=== PATIENT | female | born 1970 | race Caucasian/White ===

== ENCOUNTER 2019-07-07 21:10 | Emergency (ER) | payer BC ==
[2019-07-07] MEDS ORDERED: Metoclopramide 10 MG/2 ML SDV IVPUSH ONE (21:37)
[2019-07-07] MEDS ORDERED: Sodium Chloride 0.9% 10 ML Syringe FLUSH PRN (21:37)
[2019-07-07] MEDS ORDERED: Ketorolac 30 MG/ML SDV IVPUSH ONE (21:37)
[2019-07-07] MEDS ORDERED: diphenhydrAMINE 50 MG/ML SDV IVPUSH ONE (21:38)
--- NOTE | 2019-07-07 21:57 | EDM.PDOC ---
ED HPI GENERAL MEDICAL PROBLEM - General Chief Complaint: Headache Stated Complaint: HEADACHE Time Seen by Provider: 07/07/19 21:32 Source of Information: Reports: Patient History Limitations: Reports: No Limitations - History of Present Illness INITIAL COMMENTS - FREE TEXT/NARRATIVE: The patient presents with a severe right sided headache. This started this morning and it has gotten more intense through the day. She has photophobia, nausea and vomiting. She has no numbness or weakness. She is not dizzy. She has a history of migraines but never this bad. She had a headache after lunch yesterday but it went away. She has no fever, chills, cough, blurred vision or double vision. She has no chest pain, shortness of breath, abdominal pain, nausea or vomiting. Onset: Gradual Duration: Hour(s): Location: Reports: Head Quality: Reports: Sharp Severity: Severe Improves with: Reports: None Worsens with: Reports: None Associated Symptoms: Reports: Headaches, Nausea/Vomiting. 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 Right Headache Pain Score (Numeric/FACES): 9 - Related Data Allergies Allergy/AdvReac Type Severity Reaction Status Date / Time Sulfa (Sulfonamide Allergy Other Verified 07/07/19 21:32 Antibiotics) Home Meds: Home Meds Diazepam [Valium] 10 mg PO BEDTIME PRN 07/07/19 [History] Zolpidem [Ambien] 10 mg PO BEDTIME PRN 07/07/19 [History] traMADol [Ultram] 50 mg PO QID 07/07/19 [History] Past Medical History - Past Health History Medical/Surgical History: Denies Medical/Surgical History Social & Family History - Tobacco Use Smoking Status *Q: Current Every Day Smoker Years of Tobacco use: 30 Packs/Tins Daily: 0.1 - Caffeine Use Caffeine Use: Reports: None - Recreational Drug Use Recreational Drug Use: No ED ROS GENERAL - Review of Systems Review Of Systems: See Below Constitutional: Reports: No Symptoms HEENT: Reports: No Symptoms Respiratory: Reports: No Symptoms Cardiovascular: Reports: No Symptoms Endocrine: Reports: No Symptoms GI/Abdominal: Reports: Nausea, Vomiting. Denies: Abdominal Pain : Reports: No Symptoms Musculoskeletal: Reports: No Symptoms Skin: Reports: No Symptoms Neurological: Reports: Headache. Denies: Dizziness, Numbness, Weakness - Physical Exam Exam: See Below Exam Limited By: No Limitations General Appearance: Alert, No Apparent Distress Ears: Normal External Exam Nose: Normal Inspection Head Exam: Atraumatic, Normocephalic Neck: Normal Inspection Respiratory/Chest: No Respiratory Distress, Lungs Clear, Normal Breath Sounds Cardiovascular: Regular Rate, Rhythm, No Edema, No Murmur GI/Abdominal: Soft, Non-Tender, No Organomegaly, No Mass Neuro Exam (Abbreviated): Alert, Oriented, No Motor/Sensory Deficits Course - Vital Signs Last Recorded V/S: Last Vital Signs Temp 97.1 F 07/07/19 21:27 Pulse 71 07/07/19 21:27 Resp 18 07/07/19 21:27 BP 147/95 H 07/07/19 21:27 Pulse Ox 97 07/07/19 21:27 - Orders/Labs/Meds Orders: Active Orders 24 hr Category Date Time Status Peripheral IV Care [RC] . DIRECTED Care 07/07/19 21:37 Active Head wo Cont [CT] Stat Exams 07/07/19 21:37 Taken Sodium Chloride 0.9% [Saline Flush] Med 07/07/19 21:37 Active 10 ml FLUSH ASDIRECTED PRN Peripheral IV Insertion Adult [OM.PC] Routine Oth 07/07/19 21:37 Ordered Medication Orders Sodium Chloride (Saline Flush) 10 ml FLUSH ASDIRECTED PRN PRN Reason: Keep Vein Open Last Admin: 07/07/19 21:50 Dose: 10 ml Meds: Medications Generic Name Dose Route Start Last Admin Trade Name Freq PRN Reason Stop Dose Admin Sodium Chloride 10 ml 07/07/19 21:37 07/07/19 21:50 Saline Flush FLUSH 10 ml ASDIRECTED PRN Administration Keep Vein Open Discontinued Medications Generic Name Dose Route Start Last Admin Trade Name Freq PRN Reason Stop Dose Admin Diphenhydramine HCl 50 mg 07/07/19 21:38 07/07/19 21:47 Benadryl IVPUSH 07/07/19 21:39 50 mg ONETIME ONE Administration Hydromorphone HCl 1 mg 07/07/19 23:04 07/07/19 23:11 Dilaudid IVPUSH 07/07/19 23:05 1 mg ONETIME ONE Administration Ketorolac Tromethamine 30 mg 07/07/19 21:37 07/07/19 21:48 Toradol IVPUSH 07/07/19 21:38 30 mg ONETIME ONE Administration Metoclopramide HCl 10 mg 07/07/19 21:37 07/07/19 21:46 Reglan IVPUSH 07/07/19 21:38 10 mg ONETIME ONE Administration - Re-Assessments/Exams Free Text/Narrative Re-Assessment/Exam: 07/07/19 21:56 I ordered an IV saline lock, reglan 10mg IV, toradol 30mg IV, benadryl 50mg IV and a CT of her head. 07/07/19 23:39 She is feeling better and would like to go home now. I will discharge her home. Departure - Departure Time of Disposition: 23:40 Disposition: Home, Self-Care 01 Condition: Good Clinical Impression: Headache Qualifiers: Headache type: unspecified Headache chronicity pattern: acute headache Intractability: not intractable Qualified Code(s): R51 - Headache - Discharge Information *PRESCRIPTION DRUG MONITORING PROGRAM REVIEWED*: No *COPY OF PRESCRIPTION DRUG MONITORING REPORT IN PATIENT MAULIK: No Referrals: PCP,Unknown [Primary Care Provider] - Forms: ED Department Discharge Additional Instructions: Go home and rest and you may take the 2 hydrocodone pills we are sending you home with. Please return if you are worse. - My Orders Last 24 Hours: My Active Orders 07/07/19 21:37 Peripheral IV Care [RC] . DIRECTED Head wo Cont [CT] Stat Sodium Chloride 0.9% [Saline Flush] 10 ml FLUSH ASDIRECTED PRN Peripheral IV Insertion Adult [OM.PC] Routine - Assessment/Plan Last 24 Hours: My Active Orders 07/07/19 21:37 Peripheral IV Care [RC] . DIRECTED Head wo Cont [CT] Stat Sodium Chloride 0.9% [Saline Flush] 10 ml FLUSH ASDIRECTED PRN Peripheral IV Insertion Adult [OM.PC] Routine
[2019-07-07] MEDS ORDERED: HYDROmorphone 1 MG/ML Syringe IVPUSH ONE (23:04)
[2019-07-07] MEDS ORDERED: Acetaminophen/HYDROcodone 325-5 MG Tab PO ONE (23:39)
--- NOTE | 2019-07-09 09:15 | CT ---
Head CT Technique: Multiple axial sections through the brain were obtained. Intravenous contrast was not utilized. Comparison: No prior intracranial imaging is available. Findings: Ventricles along with basal cisterns and sulci over the convexities appear within normal limits. No abnormal parenchymal densities are seen. No evidence of intracranial hemorrhage. No midline shift or mass effect is seen. Visualized paranasal sinuses show nothing acute. No acute calvarial abnormality is seen. Visualized mastoid sinuses are clear. Impression: 1. Nothing acute is appreciated on noncontrast head CT exam. Diagnostic code #1 This report was dictated in Mountain Standard Time I agree with preliminary report from [facility], finalized on 07/07/19, 11:35 PM Central Time
== END 2019-07-07 23:53 | disposition home or self-care (01) ==
LOC: JD.ED 21:10
DX: R51 Headache (principal); F17.210 Nicotine dependence, cigarettes, uncomplicated; Z88.2 Allergy status to sulfonamides
CPT/HCPCS: 70450; 96374; 96375; 99284; A9270; J1170; J1200; J1885; J2765; 99283

== ENCOUNTER 2020-01-28 12:55 | Emergency (ER) | payer BC ==
--- NOTE | 2020-01-28 13:25 | EDM.PDOC ---
ED HPI GENERAL MEDICAL PROBLEM - General Chief Complaint: Chest Pain Stated Complaint: CHEST PAIN Time Seen by Provider: 01/28/20 13:20 - History of Present Illness INITIAL COMMENTS - FREE TEXT/NARRATIVE: 49-year-old female presents the emergency room with chest pain. And pretty significant chest pain last night early this morning a couple different episodes where she describes it as almost a charley horse on the left side of her chest more anterior than posterior but it does radiate into her back. She was at rest when this started. The patient has had episodes like this when she was in [place] she was seen in the emergency room there and they described it as a charley horse in her chest. Patient has problems with insomnia she did not do well with Ambien and was started on trazodone about a week ago. Deep breathing causes a mild irritation to the left upper anterior chest. She has some discomfort in her anterior chest at this time but is otherwise doing well. 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, Neurological History: Reports: Migraines Psychiatric History: Reports: Other (See Below) Other Psychiatric History: insomnia Endocrine/Metabolic History: Reports: Other (See Below) Other Endocrine/Metabolic History: hyponatremia - Past Surgical History HEENT Surgical History: Reports: Adenoidectomy, Tonsillectomy Female Surgical History: Reports: Hysterectomy Social & Family History - Family History Family Medical History: Noncontributory - Tobacco Use Smoking Status *Q: Current Some Day Smoker Years of Tobacco use: 15 Packs/Tins Daily: 0.1 - Caffeine Use Caffeine Use: Reports: None ED ROS GENERAL - Review of Systems Review Of Systems: See Below Constitutional: Reports: No Symptoms HEENT: Reports: No Symptoms Respiratory: Reports: No Symptoms Cardiovascular: Reports: Chest Pain, Blood Pressure Problem (The patient has very low blood pressure her blood pressure at home has been either lower than normal but at times is been higher than normal). Denies: Dyspnea on Exertion, Lightheadedness, Palpitations Endocrine: Reports: No Symptoms GI/Abdominal: Reports: No Symptoms : Reports: No Symptoms Musculoskeletal: Reports: Other (See history of present illness) Skin: Reports: No Symptoms Neurological: Reports: No Symptoms ED EXAM, GENERAL - Physical Exam Exam: See Below Exam Limited By: No Limitations General Appearance: Alert, No Apparent Distress Eye Exam: Bilateral Eye: Normal Inspection Ears: Normal External Exam, Normal Canal, Hearing Grossly Normal, Normal TMs Nose: Normal Inspection, Normal Mucosa, No Blood Throat/Mouth: Normal Inspection, Normal Lips, Normal Teeth, Normal Gums, Normal Oropharynx, Normal Voice, No Airway Compromise Head: Atraumatic, Normocephalic Neck: Normal Inspection. No: Lymphadenopathy (L), Lymphadenopathy (R) Respiratory/Chest: No Respiratory Distress, Lungs Clear, Normal Breath Sounds, Other (With palpation of her chest she has discomfort in the anterior left chest that tenderness seems to be fairly superficial underneath the skin.) Cardiovascular: Regular Rate, Rhythm, No Edema, No Murmur GI/Abdominal: Normal Bowel Sounds, Soft, Non-Tender Back Exam: Normal Inspection. No: CVA Tenderness (L), CVA Tenderness (R) Extremities: Normal Inspection, No Pedal Edema Neurological: Alert, Oriented, Normal Cognition Course - Vital Signs Last Recorded V/S: Last Vital Signs Temp 36.6 C 01/28/20 13:01 Pulse 62 01/28/20 13:01 Resp 16 01/28/20 13:01 BP 150/72 H 01/28/20 13:01 Pulse Ox 100 01/28/20 13:01 - Orders/Labs/Meds Orders: Active Orders 24 hr Category Date Time Status EKG Documentation Completion [RC] STAT Care 01/28/20 13:31 Active Labs: Laboratory Tests 01/28/20 01/28/20 01/28/20 Range/Units 13:09 13:09 13:09 WBC 5.45 (3.98-10.04) K/mm3 RBC 4.44 (3.98-5.22) M/mm3 Hgb 13.0 (11.2-15.7) gm/dl Hct 40.3 (34.1-44.9) % MCV 90.8 (79.4-94.8) fl MCH 29.3 (25.6-32.2) pg MCHC 32.3 (32.2-35.5) g/dl RDW Std Deviation 42.5 (36.4-46.3) fL Plt Count 336 (182-369) K/mm3 MPV 9.9 (9.4-12.3) fl Neut % (Auto) 50.5 (34.0-71.1) % Lymph % (Auto) 35.0 (19.3-51.7) % Mineral % (Auto) 11.9 (4.7-12.5) % Eos % (Auto) 1.8 (0.7-5.8) Baso % (Auto) 0.6 (0.1-1.2) % Neut # (Auto) 2.75 (1.56-6.13) K/mm3 Lymph # (Auto) 1.91 (1.18-3.74) K/mm3 Mineral # (Auto) 0.65 H (0.24-0.36) K/mm3 Eos # (Auto) 0.10 (0.04-0.36) K/mm3 Baso # (Auto) 0.03 (0.01-0.08) K/mm3 PT 10.1 (9.7-12.0) SECONDS INR < 0.93 APTT 28 (22-31) SECONDS D-Dimer, Quantitative < 0.19 L (0.19-0.50) mg/L Sodium 141 (136-145) mEq/L Potassium 4.2 (3.5-5.1) mEq/L Chloride 105 (98-107) mEq/L Carbon Dioxide 30 (21-32) mEq/L Anion Gap 10.2 (5-15) BUN 13 (7-18) mg/dL Creatinine 1.0 (0.55-1.02) mg/dL Est Cr Clr Drug Dosing 58.12 mL/min Estimated GFR (MDRD) 59 (>60) mL/min BUN/Creatinine Ratio 13.0 L (14-18) Glucose 101 (74-106) mg/dL Calcium 8.7 (8.5-10.1) mg/dL Total Bilirubin 1.1 H (0.2-1.0) mg/dL AST 17 (15-37) U/L ALT 16 (14-59) U/L Alkaline Phosphatase 52 (46-116) U/L Troponin I < 0.017 (0.00-0.056) ng/mL C-Reactive Protein (<1.0) mg/dL Total Protein 7.3 (6.4-8.2) g/dl Albumin 3.8 (3.4-5.0) g/dl Globulin 3.5 gm/dL Albumin/Globulin Ratio 1.1 (1-2) 01/28/20 Range/Units 13:09 WBC (3.98-10.04) K/mm3 RBC (3.98-5.22) M/mm3 Hgb (11.2-15.7) gm/dl Hct (34.1-44.9) % MCV (79.4-94.8) fl MCH (25.6-32.2) pg MCHC (32.2-35.5) g/dl RDW Std Deviation (36.4-46.3) fL Plt Count (182-369) K/mm3 MPV (9.4-12.3) fl Neut % (Auto) (34.0-71.1) % Lymph % (Auto) (19.3-51.7) % Mineral % (Auto) (4.7-12.5) % Eos % (Auto) (0.7-5.8) Baso % (Auto) (0.1-1.2) % Neut # (Auto) (1.56-6.13) K/mm3 Lymph # (Auto) (1.18-3.74) K/mm3 Mineral # (Auto) (0.24-0.36) K/mm3 Eos # (Auto) (0.04-0.36) K/mm3 Baso # (Auto) (0.01-0.08) K/mm3 PT (9.7-12.0) SECONDS INR APTT (22-31) SECONDS D-Dimer, Quantitative (0.19-0.50) mg/L Sodium (136-145) mEq/L Potassium (3.5-5.1) mEq/L Chloride (98-107) mEq/L Carbon Dioxide (21-32) mEq/L Anion Gap (5-15) BUN (7-18) mg/dL Creatinine (0.55-1.02) mg/dL Est Cr Clr Drug Dosing mL/min Estimated GFR (MDRD) (>60) mL/min BUN/Creatinine Ratio (14-18) Glucose (74-106) mg/dL Calcium (8.5-10.1) mg/dL Total Bilirubin (0.2-1.0) mg/dL AST (15-37) U/L ALT (14-59) U/L Alkaline Phosphatase (46-116) U/L Troponin I (0.00-0.056) ng/mL C-Reactive Protein 0.2 (<1.0) mg/dL Total Protein (6.4-8.2) g/dl Albumin (3.4-5.0) g/dl Globulin gm/dL Albumin/Globulin Ratio (1-2) - Re-Assessments/Exams Free Text/Narrative Re-Assessment/Exam: 01/28/20 14:45 X-ray is negative for acute cardiopulmonary changes. EKG is nondiagnostic for acute cardiac ischemia however it is a abnormal tracing but not an acute. Evaluation shows a negative troponin negative d-dimer. Discussed the situation with the patient to use Tylenol for the discomfort and follow-up with her regular provider and discuss any potential utility for a stress test albeit she had a stress test done about 3 years ago that was nondiagnostic. 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 Departure - Departure Time of Disposition: 14:47 Disposition: Home, Self-Care 01 Clinical Impression: Chest pain, Chest wall pain Referrals: Leslie Castano PA-C [Primary Care Provider] - Forms: ED Department Discharge Additional Instructions: Return to the emergency room with any questions problems or worsening symptoms. Start baby aspirin or 81 mg enteric-coated once daily. Use acetaminophen, or Tylenol as needed for the discomfort. Follow-up with Leslie Castano in 1 to 2 weeks for recheck. Discuss if you need another stress test. Sepsis Event Note (ED) - Evaluation Sepsis Screening Result: No Definite Risk - Focused Exam Vital Signs: Vital Signs Temp Pulse Resp BP Pulse Ox 01/28/20 13:01 36.6 C 62 16 150/72 H 100 - My Orders Last 24 Hours: My Active Orders 01/28/20 13:31 EKG Documentation Completion [RC] STAT - Assessment/Plan Last 24 Hours: My Active Orders 01/28/20 13:31 EKG Documentation Completion [RC] STAT
--- NOTE | 2020-01-28 14:18 | CR ---
Chest: Portable view of the chest was obtained. Comparison: Prior chest x-ray of 11/19/12. Heart size and mediastinum are normal. Lungs are clear with no acute parenchymal change. Bony structures are grossly intact. Impression: 1. Nothing acute is appreciated on portable chest x-ray. Diagnostic code #1 This report was dictated in MDT
[2020-01-28] MEDS ORDERED: Aspirin 81 MG Tab.Chew PO ONE (14:48)
== END 2020-01-28 15:04 | disposition home or self-care (01) ==
LOC: JD.ED 12:55
DX: R07.89 Other chest pain (principal); F17.210 Nicotine dependence, cigarettes, uncomplicated; Z88.6 Allergy status to analgesic agent; Z88.2 Allergy status to sulfonamides; Z79.899 Other long term (current) drug therapy
CPT/HCPCS: 36415; 71045; 80053; 84484; 85025; 85379; 85610; 85730; 86140; 93005; 99285; A9270; 93010; 99283

== ENCOUNTER 2020-03-11 13:47 | Emergency (ER) | payer BC ==
--- NOTE | 2020-03-11 14:09 | EDM.PDOC ---
ED HPI GENERAL MEDICAL PROBLEM - General Chief Complaint: Lower Extremity Injury/Pain Stated Complaint: LT HANSON AND KNEE INJURY Time Seen by Provider: 03/11/20 14:09 - History of Present Illness INITIAL COMMENTS - FREE TEXT/NARRATIVE: 49-year-old female presents the emergency room with left knee injury and bilateral lower leg injury. This occurred about an hour ago. The patient was barrel racing and on turn to hit a barrel going in then clipped it again coming out. Apparently she knocked the barrel over on the first go around and hit it again and it stood up and got her legs again. The horse did not fall the patient did not fall. Patient denies any other injuries associated with this most unfortunate event. Left Lower Leg Pain Score (Numeric/FACES): 7 - Related Data Allergies Allergy/AdvReac Type Severity Reaction Status Date / Time acetaminophen [From Tylenol] Allergy Severe Joint Pain Verified 01/28/20 13:04 Sulfa (Sulfonamide Allergy Severe Other Verified 03/11/20 14:15 Antibiotics) Home Meds: Home Meds diazePAM [Valium] 5 mg PO BEDTIME PRN 07/07/19 [History] traZODone HCl [Trazodone HCl] 100 mg PO DAILY 01/28/20 [History] Aspirin 81 mg PO DAILY 03/11/20 [History] Naproxen [Naprosyn] 500 mg PO ASDIRECTED #14 tablet 03/11/20 [Rx] oxyCODONE 5 mg PO Q6H PRN #20 tab 03/11/20 [Rx] Past Medical History - Past Health History Medical/Surgical History: Denies Medical/Surgical History 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, Neurological History: Reports: Migraines Psychiatric History: Reports: Other (See Below) Other Psychiatric History: insomnia Endocrine/Metabolic History: Reports: Other (See Below) Other Endocrine/Metabolic History: hyponatremia - Past Surgical History HEENT Surgical History: Reports: Adenoidectomy, Tonsillectomy Female Surgical History: Reports: Hysterectomy Social & Family History - Family History Family Medical History: Noncontributory - Caffeine Use Caffeine Use: Reports: None Review of Systems - Review of Systems Review Of Systems: See Below Constitutional: Reports: No Symptoms Respiratory: Reports: No Symptoms Cardiovascular: Reports: No Symptoms GI/Abdominal: Reports: No Symptoms Skin: Reports: No Symptoms Neurological: Reports: No Symptoms ED EXAM, GENERAL - Physical Exam Exam: See Below Exam Limited By: No Limitations General Appearance: Alert, No Apparent Distress Respiratory/Chest: No Respiratory Distress, Lungs Clear, Normal Breath Sounds Cardiovascular: Regular Rate, Rhythm, No Edema, No Murmur Extremities: Other (Patient has abrasions over both tibial tuberosities anterior aspect. Her left knee is really sore and she has some swelling in the lower patellar region. LCL and MCL appear to be intact in both legs did not attempt checking the ACL on the left side due to discomfort right side seems okay with regards to the ACL) Course - Vital Signs Last Recorded V/S: Last Vital Signs Temp 37.2 C 03/11/20 14:09 Pulse 71 03/11/20 14:09 Resp 16 03/11/20 14:09 BP 116/70 03/11/20 14:09 Pulse Ox 98 03/11/20 14:09 - Orders/Labs/Meds Orders: Active Orders 24 hr Category Date Time Status Knee 3V Lt [CR] Stat Exams 03/11/20 14:19 Taken Tibia Fibula Bi [CR] Stat Exams 03/11/20 14:19 Taken Meds: Medications Discontinued Medications Generic Name Dose Route Start Last Admin Trade Name Freq PRN Reason Stop Dose Admin Fentanyl 50 mcg 03/11/20 14:20 03/11/20 14:28 Sublimaze IVPUSH 03/11/20 14:21 50 mcg ONETIME ONE Administration Fentanyl 50 mcg 03/11/20 15:55 Sublimaze IVPUSH 03/11/20 15:56 ONETIME ONE - Re-Assessments/Exams Free Text/Narrative Re-Assessment/Exam: 03/11/20 15:58 Bilateral tib-fib x-rays are unremarkable left knee x-ray is also negative for acute fracture or dislocation. The patient does not do well on Tylenol give her prescription for oxycodone. And a short course of Naprosyn 500 mg twice daily for only 1 week. She will take this with her morning and evening meals I have cautioned her about riding her horse tomorrow her assures me she will not. Departure - Departure Time of Disposition: 16:14 Disposition: Home, Self-Care 01 Clinical Impression: Septic infrapatellar bursitis of left knee, Contusion of both tibias - Discharge Information Referrals: Leslie Castano PA-C [Primary Care Provider] - Forms: ED Department Discharge Additional Instructions: Return to the emergency room with any questions problems or worsening symptoms. You have been started on Naprosyn, do not take ibuprofen with this, take this twice daily with your morning and evening meals if you need this for over a week then switch down to the [id number] dosing. You have also been given some oxycodone use this every 6 hours as needed only if the Naprosyn is not controlling your pain. This medication can cause constipation and if you are using it on a regular basis use a good stool softener or MiraLAX. Follow-up with your regular healthcare provider at the end of this next week if needed. Sepsis Event Note (ED) - Focused Exam Vital Signs: Vital Signs Temp Pulse Resp BP Pulse Ox 03/11/20 14:09 37.2 C 71 16 116/70 98 - My Orders Last 24 Hours: My Active Orders 03/11/20 14:19 Knee 3V Lt [CR] Stat Tibia Fibula Bi [CR] Stat - Assessment/Plan Last 24 Hours: My Active Orders 03/11/20 14:19 Knee 3V Lt [CR] Stat Tibia Fibula Bi [CR] Stat
[2020-03-11] MEDS ORDERED: fentaNYL 100 MCG/2 ML SDV IVPUSH ONE ×2 (14:20→15:55)
--- NOTE | 2020-03-11 20:24 | CR ---
Left knee: AP and lateral views of the left knee were obtained as well as sunrise patellar view. Comparison: No previous knee exam. Minimal medial joint space narrowing is seen. Lateral joint space is preserved. No joint effusion is seen. Left patellofemoral joint appears within normal limits. Impression: 1. Minimal medial joint space narrowing. 2. Three-view left knee study is otherwise unremarkable. Diagnostic code #2 This report was dictated in MDT
--- NOTE | 2020-03-11 20:26 | CR ---
Right tibia and fibula: 2 views of right tibia and fibula were obtained. Comparison: Previous right tibia and fibula study of 03/10/14. No discrete fracture or other bony abnormality is appreciated. Small soft tissue calcification is seen within the adam which is believed to be dystrophic and nonacute. Impression: 1. Nothing acute is seen on 2 view right tibia and fibula exam. Diagnostic code #1 This report was dictated in MDT Left tibia and fibula: 2 views of the left tibia and fibula were obtained. No fracture or other bony abnormality is seen. Impression: 1. No abnormality is appreciated on left tibia and fibula exam. Diagnostic code #1 This report was dictated in MDT
== END 2020-03-11 16:45 | disposition home or self-care (01) ==
LOC: JD.ED 13:47
DX: S80.12XA Contusion of left lower leg, initial encounter (principal); S80.11XA Contusion of right lower leg, initial encounter; M70.42 Prepatellar bursitis, left knee; Z79.82 Long term (current) use of aspirin; Z88.1 Allergy status to other antibiotic agents; Z88.2 Allergy status to sulfonamides; Z90.710 Acquired absence of both cervix and uterus; Z90.89 Acquired absence of other organs; W22.8XXA Striking against or struck by other objects, initial encounter
CPT/HCPCS: 73562; 73590; 96374; 96376; 99283; J3010; 99284

== ENCOUNTER 2020-05-26 17:25 | Emergency (ER) | payer BC ==
[2020-05-26] MEDS ORDERED: predniSONE 20 MG Tab PO ONE (18:15)
--- NOTE | 2020-05-26 18:21 | EDM.PDOC ---
ED HPI GENERAL MEDICAL PROBLEM - General Chief Complaint: Allergic Reaction Stated Complaint: THROAT SWELLING Time Seen by Provider: 05/26/20 17:54 Source of Information: Reports: Patient, RN Notes Reviewed - History of Present Illness INITIAL COMMENTS - FREE TEXT/NARRATIVE: 49 yr old female that started with a rash on her face about 4 days ago, now has spread to her neck. It is uncomfortable, rees more than itches. No generalized rash or any other area reacting now or in the past 4 days. Has been taking zyrtec. She did take a course of macrobid for UTI about 2 wks ago. She has used a product her gave her on her face and neck a few days ago and has been using some of her usual lotions that have not been a problem in the past. Bilateral Lower Back Pain Score (Numeric/FACES): 6 - Related Data Allergies Allergy/AdvReac Type Severity Reaction Status Date / Time acetaminophen [From Tylenol] Allergy Severe Joint Pain Verified 05/26/20 17:32 Sulfa (Sulfonamide Allergy Severe Other Verified 05/26/20 17:32 Antibiotics) Home Meds: Home Meds diazePAM [Valium] 5 mg PO BEDTIME PRN 07/07/19 [History] traZODone HCl [Trazodone HCl] 100 mg PO DAILY 01/28/20 [History] predniSONE [Prednisone] 20 mg PO Q12HR #12 tablet 05/26/20 [Rx] traMADol [Ultram] 50 mg PO DAILY 05/26/20 [History] Past Medical History - Past Health History Medical/Surgical History: Denies 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/Surgical History 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, Neurological History: Reports: Migraines Psychiatric History: Reports: Other (See Below) Other Psychiatric History: insomnia Endocrine/Metabolic History: Reports: Other (See Below) Other Endocrine/Metabolic History: hyponatremia - Past Surgical History HEENT Surgical History: Reports: Adenoidectomy, Tonsillectomy Female Surgical History: Reports: Hysterectomy Social & Family History - Family History Family Medical History: Noncontributory - Tobacco Use Tobacco Use Status *Q: Current Some Day Tobacco User Years of Tobacco use: 20 Packs/Tins Daily: 0.1 - Caffeine Use Caffeine Use: Reports: None - Recreational Drug Use Recreational Drug Use: No ED ROS ALLERGIC REACTION - Review of Systems Review Of Systems: See Below Constitutional: Denies: Fever, Chills HEENT: Denies: Throat Pain Respiratory: Denies: Shortness of Breath, Wheezing Cardiovascular: Denies: Chest Pain GI/Abdominal: Denies: Abdominal Pain, Vomiting Musculoskeletal: Reports: No Symptoms Skin: Reports: Pruritis, Rash, Erythema Neurological: Reports: No Symptoms ED EXAM GENERAL NO PERIP PULSE - Physical Exam Exam: See Below General Appearance: Alert, No Apparent Distress Eye Exam: Bilateral Eye: PERRL Head: No: Facial Swelling Neck: Supple Respiratory/Chest: No Respiratory Distress, Lungs Clear. No: Rhonchi, Wheezing Cardiovascular: Regular Rate, Rhythm Skin Exam: Warm, Dry, Erythema (mild erythema lower face but intense erythema ant. neck, post neck clear, evidence of slight peeling of skin mid and upper face), Other (no rash or hives anywhere else, ant. neck primary area of intense erythema) Course - Vital Signs Last Recorded V/S: Last Vital Signs Temp 97.8 F 05/26/20 17:30 Pulse 79 05/26/20 17:30 Resp 16 05/26/20 17:30 BP 142/84 H 05/26/20 17:30 Pulse Ox 100 05/26/20 17:30 - Orders/Labs/Meds Meds: Medications Discontinued Medications Generic Name Dose Route Start Last Admin Trade Name Bennett PRN Reason Stop Dose Admin Prednisone 40 mg 05/26/20 18:15 05/26/20 18:30 Prednisone PO 05/26/20 18:16 40 mg ONETIME ONE Administration - Re-Assessments/Exams Free Text/Narrative Re-Assessment/Exam: 05/27/20 08:07 Unclear what started the facial and neck eruption, has not been outdoors in sun. The macrobid she was on was well before her facial and neck rash started. There is a strong line of demarcation post. lat neck bilat strongly suggesting that there is an element of contact dermatitis likely from products used to try make the facial and neck eruption better. Posterior neck is totally clear. Departure - Departure Time of Disposition: 18:20 Disposition: Home, Self-Care 01 Condition: Fair (Allergic reaction) Clinical Impression: Skin rash, Erythema of neck - Discharge Information Prescriptions: predniSONE [Prednisone] 20 mg PO Q12HR #12 tablet Instructions: Allergies, Adult Referrals: Leslie Castano PA-C [Primary Care Provider] - Forms: ED Department Discharge Additional Instructions: You have been given prednisone 40 mg orally this evening in the ED. Continue prednisone 20 mg twice daily for 6 days or until gone. Prescription has siva sent to the medicine shop. Lubriderm is a safe lotion to use for moisturization if needed. Do not use any other creams or lotions at this time with your skin being so currently sensitive. This should get much better over the next 3 to 5 days. Return to ED if symptoms worsening in any way. Follow up clinic as needed. Sepsis Event Note (ED) - Evaluation Sepsis Screening Result: No Definite Risk
== END 2020-05-26 18:30 | disposition home or self-care (01) ==
LOC: JD.ED 17:25
DX: R21 Rash and other nonspecific skin eruption (principal); L53.9 Erythematous condition, unspecified; F17.210 Nicotine dependence, cigarettes, uncomplicated; Z79.899 Other long term (current) drug therapy; Z88.6 Allergy status to analgesic agent; Z88.2 Allergy status to sulfonamides
CPT/HCPCS: 99282; J7512; 99283

== ENCOUNTER 2021-04-12 14:53 | Emergency (ER) | payer BC ==
[2021-04-12] MEDS ORDERED: diphenhydrAMINE 50 MG/ML SDV IVPUSH ONE (15:14)
[2021-04-12] MEDS ORDERED: Sodium Chloride 0.9% 1,000 ML IV STA (15:14)
[2021-04-12] MEDS ORDERED: Ketorolac 30 MG/ML SDV IVPUSH ONE (15:14)
[2021-04-12] MEDS ORDERED: Metoclopramide 10 MG/2 ML SDV IVPUSH ONE (15:14)
--- NOTE | 2021-04-12 15:31 | EDM.PDOC ---
ED HPI GENERAL MEDICAL PROBLEM - General Chief Complaint: Headache Stated Complaint: MIGRAINE Time Seen by Provider: 04/12/21 15:04 Source of Information: Reports: Patient, RN Notes Reviewed History Limitations: Reports: No Limitations - History of Present Illness INITIAL COMMENTS - FREE TEXT/NARRATIVE: Patient is a 50-year-old female presenting to the emergency department with complaints of migraine headache. Reports that it has been waxing and waning for the last few days but that today it worsened in intensity. She does have a history of migraine headaches and states this feels similar to her previous episodes. Reports light sensitivity as well as vomiting. She has been taking Motrin for pain with her last dose being around 9:00 this morning. Pain is localized to the left frontal. Denies any recent head injuries. 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, Neurological History: Reports: Migraines Psychiatric History: Reports: Other (See Below) Other Psychiatric History: insomnia Endocrine/Metabolic History: Reports: Other (See Below) Other Endocrine/Metabolic History: hyponatremia - Past Surgical History HEENT Surgical History: Reports: Adenoidectomy, Tonsillectomy Female Surgical History: Reports: Hysterectomy Social & Family History - Family History Family Medical History: No Pertinent Family History - Tobacco Use Tobacco Use Status *Q: Current Every Day Tobacco User Years of Tobacco use: 20 Packs/Tins Daily: 0.5 - Caffeine Use Caffeine Use: Reports: None - Recreational Drug Use Recreational Drug Use: No ED ROS GENERAL - Review of Systems Review Of Systems: See Below Constitutional: Reports: No Symptoms. Denies: Fever, Chills HEENT: Reports: Other (Light sensitivity). Denies: Vision Change Respiratory: Reports: No Symptoms Cardiovascular: Reports: No Symptoms Endocrine: Reports: No Symptoms GI/Abdominal: Reports: Nausea, Vomiting. Denies: Abdominal Pain : Reports: No Symptoms Musculoskeletal: Reports: No Symptoms Skin: Reports: No Symptoms Neurological: Reports: Headache. Denies: Confusion, Dizziness Psychiatric: Reports: No Symptoms Hematologic/Lymphatic: Reports: No Symptoms Immunologic: Reports: No Symptoms - Physical Exam Exam: See Below General Appearance: Alert, WD/WN, No Apparent Distress, Other (Lights out the room and she had her eyes covered with her jacket.) Eye Exam: Bilateral Eye: Normal Inspection Respiratory/Chest: No Respiratory Distress, Lungs Clear, Normal Breath Sounds, No Accessory Muscle Use, Chest Non-Tender Cardiovascular: Normal Peripheral Pulses, Regular Rate, Rhythm, No Edema, No Gallop, No JVD, No Murmur, No Rub Neuro Exam (Abbreviated): Alert, Oriented, CN II-XII Intact, Normal Cognition, Normal Gait, Normal Reflexes, No Motor/Sensory Deficits Psychiatric: Normal Affect, Normal Mood Skin Exam: Warm, Dry, Intact, Normal Color, No Rash Course - Vital Signs Last Recorded V/S: Last Vital Signs Temp 98.5 F 04/12/21 15:03 Pulse 59 L 04/12/21 15:03 Resp 16 04/12/21 15:03 BP 123/77 04/12/21 15:03 Pulse Ox 98 04/12/21 15:03 - Orders/Labs/Meds Meds: Medications Discontinued Medications Generic Name Dose Route Start Last Admin Trade Name Camiloq PRN Reason Stop Dose Admin Diphenhydramine HCl 50 mg 04/12/21 15:14 04/12/21 15:34 Diphenhydramine 50 Mg/Ml Sdv IVPUSH 04/12/21 15:15 50 mg ONETIME ONE Administration Hydromorphone HCl 0.5 mg 04/12/21 16:32 04/12/21 16:36 Hydromorphone 0.5 Mg/0.5 Ml Syringe IVPUSH 04/12/21 16:33 0.5 mg ONETIME ONE Administration Sodium Chloride 1,000 mls @ 999 mls/hr 04/12/21 15:14 04/12/21 15:32 Normal Saline IV 04/12/21 16:14 999 mls/hr NOW STA Administration Ketorolac Tromethamine 30 mg 04/12/21 15:14 04/12/21 15:32 Ketorolac 30 Mg/Ml Sdv IVPUSH 04/12/21 15:15 30 mg ONETIME ONE Administration Metoclopramide HCl 7.5 mg 04/12/21 15:14 04/12/21 15:33 Metoclopramide 10 Mg/2 Ml Sdv IVPUSH 04/12/21 15:15 7.5 mg ONETIME ONE Administration - Re-Assessments/Exams Free Text/Narrative Re-Assessment/Exam: Patient is a 50-year-old female presenting to the emergency department with complaints of migraine headache. She does have a history of recurrent migraines and states that this feels like a normal headache for her. Exam is unremarkable. I have ordered fluids, Toradol, Reglan, and Benadryl. 04/12/21 1645 Patient did have improvement with the medications given but states that the headache is still somewhat present. I have ordered a dose of Dilaudid 0.5 mg IV. We will discharge her home to rest. Discussed return precautions. Discharge instructions as documented. Departure - Departure Time of Disposition: 16:32 Disposition: Home, Self-Care 01 Condition: Good Clinical Impression: Migraine - Discharge Information *PRESCRIPTION DRUG MONITORING PROGRAM REVIEWED*: No *COPY OF PRESCRIPTION DRUG MONITORING REPORT IN PATIENT MAULIK: No Instructions: Migraine Headache, [id number] Referrals: Leslie Castano PA-C [Primary Care Provider] - Forms: ED Department Discharge Additional Instructions: You were seen in the emergency department today for migraine headache. You received IV fluids and pain medications which did improve your symptoms. Recommend that you go home and rest. You may continue to use ibuprofen as needed for discomfort. Return to ER for any new or worsening symptoms. Sepsis Event Note (ED) - Evaluation Sepsis Screening Result: No Definite Risk - Focused Exam Vital Signs: Vital Signs Temp Pulse Resp BP Pulse Ox 04/12/21 15:03 98.5 F 59 L 16 123/77 98
[2021-04-12] MEDS ORDERED: HYDROmorphone 0.5 MG/0.5 ML Syringe IVPUSH ONE (16:32)
== END 2021-04-12 16:46 | disposition home or self-care (01) ==
LOC: JD.ED 14:53
DX: G43.909 Migraine, unspecified, not intractable, without status migrainosus (principal); Z72.0 Tobacco use; Z88.6 Allergy status to analgesic agent; Z88.2 Allergy status to sulfonamides; Z79.899 Other long term (current) drug therapy
CPT/HCPCS: 96374; 96375; 99283; J1170; J1200; J1885; J2765; J7030

== ENCOUNTER 2021-05-12 17:44 | Emergency (ER) | payer BC ==
[2021-05-12] MEDS ORDERED: Ketorolac 15 MG/ML SDV IM ONE (18:28)
--- NOTE | 2021-05-12 18:29 | EDM.PDOC ---
ED HPI GENERAL MEDICAL PROBLEM - General Chief Complaint: ENT Problem Stated Complaint: TOOTH PAIN Time Seen by Provider: 05/12/21 18:25 - History of Present Illness INITIAL COMMENTS - FREE TEXT/NARRATIVE: Patient 50-year-old female presented to emergency with chief complaint of dental pain. Patient reports lower left molar pain since yesterday. She states she was post have a root canal done about 2 weeks ago and then had to cancel because of Covid. She states she started taking clindamycin yesterday as called in by her doctor. She is been using ibuprofen as well with little relief. Pain radiates down into the jaw. No fevers, no difficulty speaking, no difficulty breathing. Left Lower Tooth/Teeth Pain Score (Numeric/FACES): 9 - Related Data Allergies Allergy/AdvReac Type Severity Reaction Status Date / Time acetaminophen [From Tylenol] Allergy Severe Joint Pain Verified 05/12/21 18:14 Sulfa (Sulfonamide Allergy Severe Other Verified 05/12/21 18:14 Antibiotics) Home Meds: Home Meds traMADol [Ultram] 50 mg PO DAILY 05/26/20 [History] Escitalopram [Lexapro] 20 mg PO DAILY 04/12/21 [History] Zolpidem Tartrate [Ambien Cr] 12.5 mg PO BEDTIME 05/12/21 [History] clindamycin HCL [Clindamycin HCl] 150 mg PO QID 05/12/21 [History] diazePAM [Valium] 5 mg PO BEDTIME PRN 05/12/21 [History] oxyCODONE 5 mg PO Q6HR #6 tab 05/12/21 [Rx] Past Medical History - Past Health History Medical/Surgical History: Denies 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, Neurological History: Reports: Migraines Psychiatric History: Reports: Other (See Below) Other Psychiatric History: insomnia Endocrine/Metabolic History: Reports: Other (See Below) Other Endocrine/Metabolic History: hyponatremia - Past Surgical History HEENT Surgical History: Reports: Adenoidectomy, Tonsillectomy Female Surgical History: Reports: Hysterectomy Social & Family History - Family History Family Medical History: No Pertinent Family History - Tobacco Use Tobacco Use Status *Q: Never Tobacco User Second Hand Smoke Exposure: No - Caffeine Use Caffeine Use: Reports: None - Recreational Drug Use Recreational Drug Use: No ED ROS ENT - Review of Systems Review Of Systems: Comprehensive ROS is negative, except as noted in HPI. ED EXAM, ENT - Physical Exam Exam: See Below Text/Narrative:: I have reviewed the triage vital signs Const: Well nourished, well developed, appears stated age Eyes: Pupils Equal and reactive to light bilaterally, no conjunctival injection HENT: No trismus noted. No submandibular fullness. Cracked tooth noted in posterior left molar. No obvious abscess. No signs of trauma or swelling, Neck supple without meningismus CV: Regular Rate Rhythm, Warm, well-perfused extremities RESP: Unlabored respiratory effort GI: soft, non-tender, non-distended, no masses MSK: No gross deformities appreciated Skin: Warm, dry. No rashes Neuro: Alert, sales promotion representative II-XII grossly intact. Sensation and motor function of extremities grossly intact. Psych: Appropriate mood and affect. Course - Vital Signs Last Recorded V/S: Last Vital Signs Temp 36.5 C 05/12/21 18:10 Pulse 82 05/12/21 18:10 Resp 16 05/12/21 18:10 BP 148/80 H 05/12/21 18:10 Pulse Ox 97 05/12/21 18:10 - Orders/Labs/Meds Meds: Medications Discontinued Medications Generic Name Dose Route Start Last Admin Trade Name Freq PRN Reason Stop Dose Admin Ketorolac Tromethamine 30 mg 05/12/21 18:28 05/12/21 18:33 Ketorolac 15 Mg/Ml Sdv IM 05/12/21 18:29 30 mg ONETIME ONE Administration Oxycodone HCl 5 mg 05/12/21 18:50 Oxycodone 5 Mg Tab PO 05/12/21 18:51 ONETIME ONE Departure - Departure Time of Disposition: 18:28 Disposition: Home, Self-Care 01 Clinical Impression: Pain, dental - Discharge Information Prescriptions: oxyCODONE 5 mg PO Q6HR #6 tab Referrals: PCP,Not In Area [Primary Care Provider] - Forms: ED Department Discharge Sepsis Event Note (ED) - Evaluation Sepsis Screening Result: No Definite Risk - Focused Exam Vital Signs: Vital Signs Temp Pulse Resp BP Pulse Ox 05/12/21 18:10 36.5 C 82 16 148/80 H 97 - Assessment/Plan Assessment:: Patient 50-year-old female presenting to the emergency room with dental pain. Patient had no obvious drainable abscess. No submandibular fullness indicating Ap angina. Patient will be continued on antibiotics and given pain medication in the emergency room. Instructed on the importance of following up with dentist on Friday. Return precautions discussed as usual. Patient agrees with plan of care.
[2021-05-12] MEDS ORDERED: oxyCODONE 5 MG Tab PO ONE (18:50)
== END 2021-05-12 19:34 | disposition home or self-care (01) ==
LOC: JD.ED 17:44
DX: K08.89 Other specified disorders of teeth and supporting structures (principal); Z88.2 Allergy status to sulfonamides; Z88.8 Allergy status to other drugs, medicaments and biological substances
CPT/HCPCS: 96372; 99282; A9270; J1885

== ENCOUNTER 2021-07-13 17:38 | Emergency (ER) | payer BC ==
[2021-07-13] MEDS ORDERED: Sodium Chloride 0.9% 10 ML Syringe FLUSH PRN (18:19)
[2021-07-13] MEDS ORDERED: Ondansetron 4 MG/2 ML SDV IVPUSH ONE (18:19)
[2021-07-13] MEDS ORDERED: Sodium Chloride 0.9% 1,000 ML IV SCH (18:30)
[2021-07-13] MEDS ORDERED: HYDROmorphone 0.5 MG/0.5 ML Syringe IVPUSH ONE (18:32)
--- NOTE | 2021-07-13 18:35 | EDM.PDOC ---
ED HPI GENERAL MEDICAL PROBLEM - General Chief Complaint: Abdominal Pain Stated Complaint: ABDOMINAL PAIN Time Seen by Provider: 07/13/21 18:25 Source of Information: Reports: Patient, RN Notes Reviewed History Limitations: Reports: No Limitations - History of Present Illness INITIAL COMMENTS - FREE TEXT/NARRATIVE: Patient is a 50-year-old female who presents to the ER for her left lower abdominal pain. States that this came on rather sudden, few hours ago, and has been intermittent since. States that she had a yogurt and granola for breakfast, went to [place] for the dentist, and had some pasta while in [place], but on the way home or shortly after getting home she developed this is quite severe lower abdominal pain. States she has felt pain like this once in the past when she has had a ruptured ovarian cyst. Patient has had some nausea and vomiting but no associated diarrhea. Denying any obvious dysuria, urinary frequency or urgency, no vaginal bleeding, or discharge. Has not taken anything for the pain. No associated fevers or chills or cough or shortness of breath. Pelvic Pain Score (Numeric/FACES): 10 - Related Data Allergies Allergy/AdvReac Type Severity Reaction Status Date / Time acetaminophen [From Tylenol] Allergy Severe Joint Pain Verified 07/13/21 18:18 Sulfa (Sulfonamide Allergy Severe Other Verified 07/13/21 18:18 Antibiotics) Home Meds: Home Meds Escitalopram [Lexapro] 20 mg PO DAILY 04/12/21 [History] Zolpidem Tartrate [Ambien Cr] 12.5 mg PO BEDTIME 05/12/21 [History] Cefdinir [Omnicef] 300 mg PO BID 5 Days #10 cap 07/13/21 [Rx] Past Medical History LEGAL JOB TITLES History: Reports: Endometriosis, , Other (See Below) Other LEGAL JOB TITLES History: hx/o ruptured ovarian cysts Neurological History: Reports: Migraines Psychiatric History: Reports: Other (See Below) Other Psychiatric History: insomnia Endocrine/Metabolic History: Reports: Other (See Below) Other Endocrine/Metabolic History: hyponatremia - Past Surgical History HEENT Surgical History: Reports: Adenoidectomy, Tonsillectomy Female Surgical History: Reports: Hysterectomy Social & Family History - Family History Family Medical History: No Pertinent Family History - Caffeine Use Caffeine Use: Reports: None ED ROS GENERAL - Review of Systems Review Of Systems: Comprehensive ROS is negative, except as noted in HPI. ED EXAM, GI/ABD - Physical Exam Exam: See Below Exam Limited By: No Limitations General Appearance: Alert, WD/WN, No Apparent Distress (pt appears to be in moderate pain but no distress) Respiratory/Chest: No Respiratory Distress, Lungs Clear, Normal Breath Sounds, No Accessory Muscle Use, Chest Non-Tender Cardiovascular: Normal Peripheral Pulses, Regular Rate, Rhythm, No Edema GI/Abdominal Exam: Normal Bowel Sounds, Soft, No Distention, No Mass, Tender (L lower abdomen mainly, but also suprapubic) Extremities: Normal Inspection, Normal Capillary Refill Neurological: Alert, Oriented, Normal Cognition, No Motor/Sensory Deficits Psychiatric: Normal Affect, Normal Mood Skin Exam: Warm, Dry, Intact, Normal Color, No Rash Course - Vital Signs Last Recorded V/S: Last Vital Signs Temp 98.2 F 07/13/21 18:15 Pulse 71 07/13/21 18:15 Resp 18 07/13/21 18:15 BP 107/75 07/13/21 18:15 Pulse Ox 100 07/13/21 18:15 - Orders/Labs/Meds Orders: Active Orders 24 hr Category Date Time Status Communication Order [RC] ASDIRECTED Care 07/13/21 18:31 Ordered Peripheral IV Care [RC] . DIRECTED Care 07/13/21 18:20 Active CULTURE URINE [MREF] Urgent Lab 07/13/21 21:45 Ordered Cefdinir [Omnicef] Med 07/13/21 21:47 Once 300 mg PO ONETIME ONE Sodium Chloride 0.9% [Normal Saline] 1,000 ml Med 07/13/21 18:30 Active IV ASDIRECTED Sodium Chloride 0.9% [Saline Flush] Med 07/13/21 18:19 Active 10 ml FLUSH ASDIRECTED PRN Peripheral IV Insertion Adult [OM.PC] Stat Oth 07/13/21 18:19 Ordered Medication Orders Cefdinir (Cefdinir 300 Mg Cap) 300 mg PO ONETIME ONE Stop: 07/13/21 21:48 Sodium Chloride (Normal Saline) 1,000 mls @ 150 mls/hr IV ASDIRECTED MICK Last Admin: 07/13/21 18:49 Dose: 150 mls/hr Documented by: VALDEMAR Sodium Chloride (Sodium Chloride 0.9% 10 Ml Syringe) 10 ml FLUSH ASDIRECTED PRN PRN Reason: Keep Vein Open Last Admin: 07/13/21 19:16 Dose: 10 ml Documented by: DIPTI Labs: Laboratory Tests 07/13/21 07/13/21 07/13/21 Range/Units 19:30 19:30 21:10 WBC 10.35 H (3.98-10.04) K/mm3 RBC 4.52 (3.98-5.22) M/mm3 Hgb 13.5 (11.2-15.7) gm/dl Hct 40.8 (34.1-44.9) % MCV 90.3 (79.4-94.8) fl MCH 29.9 (25.6-32.2) pg MCHC 33.1 (32.2-35.5) g/dl RDW Std Deviation 41.9 (36.4-46.3) fL Plt Count 322 (182-369) K/mm3 MPV 10.0 (9.4-12.3) fl Neut % (Auto) 79.4 H (34.0-71.1) % Lymph % (Auto) 14.5 L (19.3-51.7) % Brooke % (Auto) 5.0 (4.7-12.5) % Eos % (Auto) 0.6 L (0.7-5.8) Baso % (Auto) 0.3 (0.1-1.2) % Neut # (Auto) 8.22 H (1.56-6.13) K/mm3 Lymph # (Auto) 1.50 (1.18-3.74) K/mm3 Brooke # (Auto) 0.52 H (0.24-0.36) K/mm3 Eos # (Auto) 0.06 (0.04-0.36) K/mm3 Baso # (Auto) 0.03 (0.01-0.08) K/mm3 Sodium 139 (136-145) mEq/L Potassium 4.2 (3.5-5.1) mEq/L Chloride 103 (98-107) mEq/L Carbon Dioxide 27 (21-32) mEq/L Anion Gap 13.2 (5-15) BUN 17 (7-18) mg/dL Creatinine 0.9 (0.55-1.02) mg/dL Est Cr Clr Drug Dosing 63.54 mL/min Estimated GFR (MDRD) > 60 (>60) mL/min BUN/Creatinine Ratio 18.9 H (14-18) Glucose 96 (70-99) mg/dL Calcium 9.1 (8.5-10.1) mg/dL Magnesium 2.0 (1.8-2.4) mg/dL Total Bilirubin 0.3 (0.2-1.0) mg/dL AST 16 (15-37) U/L ALT 21 (14-59) U/L Alkaline Phosphatase 59 (46-116) U/L C-Reactive Protein <0.2 (<1.0) mg/dL Total Protein 6.9 (6.4-8.2) g/dl Albumin 3.8 (3.4-5.0) g/dl Globulin 3.1 gm/dL Albumin/Globulin Ratio 1.2 (1-2) Lipase 176 (73-393) U/L Urine Color Radha H (Yellow) Urine Appearance Clear (Clear) Urine pH 5.0 (5.0-8.0) Ur Specific [place] <=1.005 (1.005-1.030) Urine Protein Negative (Negative) Urine Glucose (UA) Negative (Negative) Urine Ketones Negative (Negative) Urine Occult Blood 1+ H (Negative) Urine Nitrite Positive H (Negative) Urine Bilirubin Negative (Negative) Urine Urobilinogen 0.2 (0.2-1.0) Ur Leukocyte Esterase Negative (Negative) Urine RBC 5-10 H (0-5) /hpf Urine WBC 0-5 (0-5) /hpf Ur Squamous Epith Cells 5-10 H (0-5) /hpf Urine Bacteria Few (FEW) /hpf Urine Mucus Not seen (FEW) /hpf Meds: Medications Generic Name Dose Route Start Last Admin Trade Name Freq PRN Reason Stop Dose Admin Cefdinir 300 mg 07/13/21 21:47 Cefdinir 300 Mg Cap PO 07/13/21 21:48 ONETIME ONE Sodium Chloride 1,000 mls @ 150 mls/hr 07/13/21 18:30 07/13/21 18:49 Normal Saline IV 150 mls/hr ASDIRECTED MICK Administration Sodium Chloride 10 ml 07/13/21 18:19 07/13/21 19:16 Sodium Chloride 0.9% 10 Ml Syringe FLUSH 10 ml ASDIRECTED PRN Administration Keep Vein Open Discontinued Medications Generic Name Dose Route Start Last Admin Trade Name Bennett PRN Reason Stop Dose Admin Hydromorphone HCl 0.5 mg 07/13/21 18:32 07/13/21 18:48 Hydromorphone 0.5 Mg/0.5 Ml Syringe IVPUSH 07/13/21 18:33 0.5 mg ONETIME ONE Administration Iopamidol 100 ml 07/13/21 19:15 07/13/21 19:16 Iopamidol 612 Mg/Ml 100 Ml Bottle IVPUSH 07/13/21 19:16 100 ml ONETIME ONE Administration Ondansetron HCl 4 mg 07/13/21 18:19 07/13/21 18:48 Ondansetron 4 Mg/2 Ml Sdv IVPUSH 07/13/21 18:20 4 mg ONETIME ONE Administration Sodium Chloride 10 ml 07/13/21 19:15 07/13/21 19:40 Sodium Chloride 0.9% 10 Ml Sdv FLUSH 07/13/21 19:16 10 ml ONETIME ONE Administration - Re-Assessments/Exams Free Text/Narrative Re-Assessment/Exam: 07/13/21 18:35 Patient presents to the ER for evaluation of her sudden onset lower abdomen pain, we will go ahead and get a CT, get some basic labs establish an IV give her some pain meds and some nausea meds and some fluids for initial management. Patient verbalized understanding of this plan. 07/13/21 21:48 Blood work is unremarkable, patient CT also unremarkable for acute abnormalities. Urinalysis was nitrite positive, so we will go ahead and treat her for a UTI culture has been sent. Start with Omnicef first dose tonight. Patient made aware of plan and verbalized understanding. Departure - Departure Time of Disposition: 21:48 Disposition: Home, Self-Care 01 Condition: Good Clinical Impression: UTI (urinary tract infection) Qualifiers: Urinary tract infection type: acute cystitis Hematuria presence: with hematuria Qualified Code(s): N30.01 - Acute cystitis with hematuria - Discharge Information *PRESCRIPTION DRUG MONITORING PROGRAM REVIEWED*: No *COPY OF PRESCRIPTION DRUG MONITORING REPORT IN PATIENT MAULIK: No Prescriptions: Cefdinir [Omnicef] 300 mg PO BID 5 Days #10 cap Instructions: Urinary Tract Infection, Adult, [id number] Referrals: Leslie Castano PA-C [Primary Care Provider] - Forms: ED Department Discharge Additional Instructions: You have been evaluated in the ED for your low abdomen pain. Blood work and CT were unremarkable for acute findings. Your urinalysis was consistent with an acute urinary tract infection. Your urine was sent for culture, and you will be notified if you should need a change in your antibiotic. This may take up to 48 hours to result. You have been given a prescription for Omnicef (cefdinir), 300 mg 1 tablet 2 times a day for 5 days. Please note that the antibiotics can take up to 48 hours to start working. Your first dose was given at [facility]'s ER visit. This medication was electronically sent to the [facility] located on [address]. You may go there tomorrow during normal business hours to pick this medication up and take as directed. Please increase your oral fluid intake and try to stay adequately hydrated. Please return to the ED if your symptoms change or worsen. Sepsis Event Note (ED) - Evaluation Sepsis Screening Result: No Definite Risk - Focused Exam Vital Signs: Vital Signs Temp Pulse Resp BP Pulse Ox 07/13/21 18:15 98.2 F 71 18 107/75 100 - My Orders Last 24 Hours: My Active Orders 07/13/21 18:19 Sodium Chloride 0.9% [Saline Flush] 10 ml FLUSH ASDIRECTED PRN Peripheral IV Insertion Adult [OM.PC] Stat 07/13/21 18:20 Peripheral IV Care [RC] . DIRECTED 07/13/21 18:30 Sodium Chloride 0.9% [Normal Saline] 1,000 ml IV ASDIRECTED 07/13/21 18:31 Communication Order [RC] ASDIRECTED 07/13/21 21:45 CULTURE URINE [MREF] Urgent 07/13/21 21:47 Cefdinir [Omnicef] 300 mg PO ONETIME ONE - Assessment/Plan Last 24 Hours: My Active Orders 07/13/21 18:19 Sodium Chloride 0.9% [Saline Flush] 10 ml FLUSH ASDIRECTED PRN Peripheral IV Insertion Adult [OM.PC] Stat 07/13/21 18:20 Peripheral IV Care [RC] . DIRECTED 07/13/21 18:30 Sodium Chloride 0.9% [Normal Saline] 1,000 ml IV ASDIRECTED 07/13/21 18:31 Communication Order [RC] ASDIRECTED 07/13/21 21:45 CULTURE URINE [MREF] Urgent 07/13/21 21:47 Cefdinir [Omnicef] 300 mg PO ONETIME ONE
[2021-07-13] MEDS ORDERED: Iopamidol 612 MG/ML 100 ML Bottle IVPUSH ONE (19:15)
[2021-07-13] MEDS ORDERED: Sodium Chloride 0.9% 10 ML SDV FLUSH ONE (19:15)
--- NOTE | 2021-07-13 19:40 | CT ---
CT abdomen and pelvis Technique: Multiple axial sections were obtained from above the dome of the diaphragm inferiorly through the pubic symphysis. Intravenous contrast was utilized. No oral contrast has been given. Reconstructed coronal and sagittal images were obtained. Comparison: Prior CT abdomen and pelvis study of 07/12/15. Findings: Visualized lung bases show nothing acute. Small low density finding is seen within the left lobe of the liver measuring several millimeters. This is too small to accurately measured by Hounsfield units but most likely represents a minimal cyst. Liver is otherwise unremarkable. Spleen is normal. Adrenal glands show no nodule. Pancreas shows no discrete abnormality. Gallbladder contains no calcified gallstones. Kidneys show symmetric contrast enhancement with no hydronephrosis or mass. Abdominal aorta shows mild atherosclerotic calcification with no aneurysm. No retroperitoneal adenopathy is seen. No mesenteric abnormalities are seen. No pelvic mass or adenopathy is seen. Appendix is seen which is normal. No bowel dilatation or bowel wall thickening is seen. Delayed images show contrast within both distal ureters and bladder. Bone window settings were reviewed. Vacuum disc phenomena is seen within the L4-5 and L5-S1 discs. Vacuum phenomena is noted within the sacroiliac joints. No acute osseous abnormality is appreciated. Impression: 1. Slight degenerative change within the lumbar spine and sacroiliac joints. 2. Small abnormality within the left lobe of the liver most likely representing minimal cyst. 3. Nothing acute is seen on CT study of the abdomen and pelvis. Diagnostic code #2
[2021-07-13] MEDS ORDERED: Cefdinir 300 MG Cap PO ONE (21:47)
== END 2021-07-13 21:59 | disposition home or self-care (01) ==
LOC: JD.ED 17:38
DX: N30.01 Acute cystitis with hematuria (principal); Z88.2 Allergy status to sulfonamides; Z88.8 Allergy status to other drugs, medicaments and biological substances
CPT/HCPCS: 36415; 74177; 80053; 81001; 83690; 83735; 85025; 86140; 87086; 96374; 96375; 99284; A9270; J1170; J2405; J7030; Q9967; 99285

== ENCOUNTER 2021-09-05 17:13 | Emergency (ER) | payer BC ==
[2021-09-05] MEDS ORDERED: Sodium Chloride 0.9% 10 ML Syringe FLUSH PRN (17:34)
[2021-09-05] MEDS ORDERED: Sodium Chloride 0.9% 1,000 ML IV STA (17:37)
[2021-09-05] MEDS ORDERED: HYDROmorphone 0.5 MG/0.5 ML Syringe IVPUSH ONE (17:37)
[2021-09-05] MEDS ORDERED: Metoclopramide 10 MG/2 ML SDV IVPUSH ONE (17:37)
[2021-09-05] MEDS ORDERED: diphenhydrAMINE 50 MG/ML SDV IVPUSH ONE (17:37)
[2021-09-05] MEDS ORDERED: Ketorolac 30 MG/ML SDV IVPUSH ONE (17:37)
== END 2021-09-05 18:07 | disposition home or self-care (01) ==
LOC: JD.ED 17:13
DX: G43.909 Migraine, unspecified, not intractable, without status migrainosus (principal); Z88.2 Allergy status to sulfonamides; Z88.8 Allergy status to other drugs, medicaments and biological substances; Z72.0 Tobacco use
CPT/HCPCS: 36415; 80053; 82375; 84484; 85025; 86140; 93005; 96374; 96375; 99285; J1170; J1200; J1885; J2765; J7030

== ENCOUNTER 2022-02-24 22:20 | Emergency (ER) | payer BC ==
[2022-02-25] MEDS ORDERED: HYDROmorphone 0.5 MG/0.5 ML Syringe IVPUSH ONE ×2 (00:08→01:57)
[2022-02-25] MEDS ORDERED: Ondansetron 4 MG/2 ML SDV IVPUSH ONE ×2 (00:08→01:40)
[2022-02-25] MEDS ORDERED: Lactated Ringers 1,000 ML IV SCH (00:15)
[2022-02-25] MEDS ORDERED: oxyCODONE 5 MG Tab PO ONE (02:35)
== END 2022-02-25 02:53 | disposition home or self-care (01) ==
LOC: JD.ED 22:20
DX: R10.9 Unspecified abdominal pain (principal); R10.814 Left lower quadrant abdominal tenderness; R10.811 Right upper quadrant abdominal tenderness; Z88.2 Allergy status to sulfonamides; Z88.8 Allergy status to other drugs, medicaments and biological substances; Z90.710 Acquired absence of both cervix and uterus
CPT/HCPCS: 36415; 74177; 80053; 81001; 83690; 85025; 96361; 96374; 96375; 96376; 99284; A9270; J1170; J2405; J7120

== ENCOUNTER 2022-05-13 19:27 | Emergency (ER) | payer BC ==
[2022-05-13] MEDS ORDERED: Ketorolac 30 MG/ML SDV IVPUSH ONE (20:38)
[2022-05-13] MEDS ORDERED: Sodium Chloride 0.9% 1,000 ML IV ONE (20:38)
[2022-05-13] MEDS ORDERED: diphenhydrAMINE 50 MG/ML SDV IVPUSH ONE (20:38)
[2022-05-13] MEDS ORDERED: Metoclopramide 10 MG/2 ML SDV IVPUSH ONE (20:38)
[2022-05-13 21:21] LABS: CORONAVIRUS COVID-19 NAA POSITIVE (NEGATIVE)
== END 2022-05-13 22:31 | disposition home or self-care (01) ==
LOC: JD.ED 19:27
DX: U07.1 COVID-19 (principal); Z72.0 Tobacco use; Z88.2 Allergy status to sulfonamides; Z88.6 Allergy status to analgesic agent; Z79.899 Other long term (current) drug therapy
CPT/HCPCS: 0241U; 96361; 96374; 96375; 99283; J1200; J1885; J2765; J7030; 99282

== ENCOUNTER 2022-07-24 22:28 | Emergency (ER) | payer BC | END 2022-07-25 00:38 | disposition left against medical advice (07) | LOC: JD.ED 22:28 | DX: Z53.21 Procedure and treatment not carried out due to patient leaving prior to being seen by health care provider (principal) ==

== ENCOUNTER 2022-10-13 12:03 | Emergency (ER) | payer BC ==
[2022-10-13] MEDS ORDERED: Cyclobenzaprine 10 MG Tab PO ONE (12:40)
[2022-10-13] MEDS ORDERED: HYDROmorphone 1 MG/ML Syringe IM ONE (12:40)
[2022-10-13] MEDS ORDERED: Ketorolac 60 MG/2 ML SDV IM ONE (12:40)
== END 2022-10-13 14:30 | disposition home or self-care (01) ==
LOC: JD.ED 12:03
DX: S20.211A Contusion of right front wall of thorax, initial encounter (principal); Z72.0 Tobacco use; Z88.2 Allergy status to sulfonamides; Z88.6 Allergy status to analgesic agent; Z79.899 Other long term (current) drug therapy; W17.89XA Other fall from one level to another, initial encounter; Y93.89 Activity, other specified
CPT/HCPCS: 71101; 96372; 99284; A9270; J1170; J1885; 99283

== ENCOUNTER 2022-12-31 14:45 | Emergency (ER) | payer BC ==
[2022-12-31] MEDS ORDERED: Ketorolac 30 MG/ML SDV IM ONE ×2 (15:42→17:40)
[2022-12-31] MEDS ORDERED: diphenhydrAMINE 50 MG/ML SDV IM ONE (15:42)
[2022-12-31] MEDS ORDERED: Metoclopramide 10 MG/2 ML SDV IM ONE (15:42)
== END 2022-12-31 18:35 | disposition home or self-care (01) ==
LOC: JD.ED 14:45
DX: G43.809 Other migraine, not intractable, without status migrainosus (principal); F17.210 Nicotine dependence, cigarettes, uncomplicated; Z79.899 Other long term (current) drug therapy; Z88.2 Allergy status to sulfonamides; Z88.6 Allergy status to analgesic agent
CPT/HCPCS: 70450; 96372; 99284; J1200; J1885; J2765; 99283

== ENCOUNTER 2023-04-08 08:08 | Day surgery (SDC) | payer BC ==
[~2023-04-08 08:08] MED LIST: Lactated Ringers 1,000 ML IV SCH; Lidocaine 1% 5 ML VIAL ONE; Propofol 200 MG/20 ML SDV ONE; Sodium Chloride 0.9% 10 ML Syringe FLUSH PRN
[2023-04-08] MEDS ORDERED: Lidocaine 1% 30 ML SDV ONE (08:16)
[2023-04-08] MEDS ORDERED: Bupivacaine 0.5%/EPINEPHrine 1:200,000 50 ML MDV ONE (08:16)
[2023-04-08] MEDS ORDERED: Sodium Chloride 0.9% 10 ML Syringe FLUSH SCH (09:00)
[2023-04-08] MEDS ORDERED: Ondansetron 4 MG/2 ML SDV IVPUSH SCH (09:49)
== END 2023-04-08 10:15 | disposition home or self-care (01) ==
LOC: JD.SDS 08:08
PROVIDERS: ATTEND Specialist
DX: D17.1 Benign lipomatous neoplasm of skin and subcutaneous tissue of trunk (principal); N39.0 Urinary tract infection, site not specified; M79.89 Other specified soft tissue disorders; L98.9 Disorder of the skin and subcutaneous tissue, unspecified; F41.9 Anxiety disorder, unspecified; G43.909 Migraine, unspecified, not intractable, without status migrainosus; Z79.899 Other long term (current) drug therapy; Z88.2 Allergy status to sulfonamides; Z88.6 Allergy status to analgesic agent
CPT/HCPCS: 21931; J2405; J2704; J3490; J7120; 00300

== ENCOUNTER 2023-04-24 19:24 | Emergency (ER) | payer BC ==
[2023-04-24] MEDS ORDERED: Ketorolac 60 MG/2 ML SDV IM ONE (20:01)
[2023-04-24] MEDS ORDERED: LORazepam 2 MG/ML SDV IM ONE (21:19)
== END 2023-04-24 21:42 | disposition home or self-care (01) ==
LOC: JD.ED 19:24
DX: M54.6 Pain in thoracic spine (principal); Z88.2 Allergy status to sulfonamides; Z88.1 Allergy status to other antibiotic agents
CPT/HCPCS: 72128; 96372; 99283; J1885; J2060

== ENCOUNTER 2023-04-28 01:15 | Emergency (ER) | payer BC ==
[2023-04-28] MEDS ORDERED: HYDROmorphone 0.5 MG/0.5 ML Syringe IVPUSH ONE (02:26)
[2023-04-28] MEDS ORDERED: Metoclopramide 10 MG/2 ML SDV IVPUSH ONE (02:27)
[2023-04-28] MEDS ORDERED: diphenhydrAMINE 50 MG/ML SDV IVPUSH ONE (02:28)
[2023-04-28] MEDS ORDERED: Dextrose 5%-0.9% NaCl 1,000 ML IV SCH (02:30)
[2023-04-28 02:41] LABS: BASOPHILS ABSOLUTE AUTO 0.1 K/mm3 (0.0-0.2); BASOPHILS PERCENT AUTO 0.6 % (0.0-1.0); EOSINOPHILS ABSOLUTE AUTO 0.1 K/mm3 (0.0-0.4); EOSINOPHILS PERCENT AUTO 1.4 % (0.0-6.0); HEMATOCRIT 40.4 % (37.0-47.0); HEMOGLOBIN 13.8 gm/dl (12.0-16.0); IMMATURE GRAN ABSOLUTE AUTO 0.01 K/mm3 (0.00-0.05); IMMATURE GRAN PERCENT AUTO 0.1 % (0.0-0.4); LYMPHOCYTES ABSOLUTE AUTO 2.9 K/mm3 (1.0-4.8); LYMPHOCYTES PERCENT AUTO 36.5 % (24.0-44.0); MEAN CORPUSCULAR HEMOGLOBIN 30.9 pg (28.0-32.0); MEAN CORPUSCULAR HGB CONC 34.2 g/dl (32.0-36.0); MEAN CORPUSCULAR VOLUME 90.6 fl (83.0-99.0); MEAN PLATELET VOLUME 9.6 fl (9.4-12.3); MONOCYTES ABSOLUTE AUTO 0.6 K/mm3 (0.0-0.8); MONOCYTES PERCENT AUTO 7.4 % (0.0-8.0); NEUTROPHILS ABSOLUTE AUTO 4.3 K/mm3 (1.8-7.7); PLATELET COUNT,PLT 393 K/mm3 (150-400); RED BLOOD CELL COUNT 4.46 M/mm3 (4.10-5.30)
[2023-04-28 02:52] LABS: A/G RATIO 1.1 (1-2); ALANINE AMINOTRANSFERASE,ALT 25 U/L (14-59); ALKALINE PHOSPHATASE 58 U/L (46-116); ANION GAP 11.4 (5-15); ASPARTATE AMNIOTRANSFERASE,AST 28 U/L (15-37); BILIRUBIN TOTAL 0.7 mg/dL (0.2-1.0); BLOOD UREA NITROGEN,BUN 17 mg/dL (7-18); C-REACTIVE PROTEIN <0.2 mg/dL (<1.0); CALCIUM 9.2 mg/dL (8.5-10.1); CARBON DIOXIDE,CO2 27 mEq/L (21-32); CHLORIDE,CL 101 mEq/L (98-107); EST CRCL DRUG DOSING (CG) 56.18 mL/min; ESTIMATED GFR 67 mL/min (>60); GLUCOSE RANDOM 90 mg/dL (70-99); POTASSIUM,K 3.4 mEq/L (3.5-5.1); PROTEIN TOTAL,TP 7.8 g/dl (6.4-8.2); SODIUM,NA 136 mEq/L (136-145)
[2023-04-28 03:10] LABS: APPEARANCE,URINE CLEAR (Clear); BILIRUBIN,URINE NEGATIVE (Negative); COLOR,URINE YELLOW (Yellow); GLUCOSE,URINE NEGATIVE (Negative); KETONES,URINE 1+ (Negative); LEUKOCYTE ESTERASE,URINE NEGATIVE (Negative); NITRITE,URINE NEGATIVE (Negative); OCCULT BLOOD,URINE 2+ (Negative); PH,URINE 5.5 (5.0-8.0); PROTEIN,URINE NEGATIVE (Negative); UROBILINOGEN,URINE 0.2 (0.2-1.0)
[2023-04-28 04:04] LABS: BACTERIA,URINE FEW /hpf (FEW); MUCUS,URINE FEW /hpf (FEW); SQUAMOUS EPITHELIAL CELLS,UR 0-5 /hpf (0-5); WBC,URINE 0-5 /hpf (0-5)
[2023-04-28] MEDS ORDERED: LORazepam 2 MG/ML SDV IVPUSH ONE (04:06)
[2023-04-28] MEDS ORDERED: LORazepam 2 MG/ML SDV IV ONE (04:15)
== END 2023-04-28 06:18 | disposition home or self-care (01) ==
LOC: JD.ED 01:15
DX: K59.01 Slow transit constipation (principal); F51.04 Psychophysiologic insomnia; F17.210 Nicotine dependence, cigarettes, uncomplicated; Z20.822 Contact with and (suspected) exposure to COVID-19; Z88.2 Allergy status to sulfonamides; Z88.8 Allergy status to other drugs, medicaments and biological substances; Z79.899 Other long term (current) drug therapy
CPT/HCPCS: 36415; 71045; 74176; 80053; 81001; 83605; 83735; 85025; 85379; 86140; 87635; 96361; 96374; 96375; 99284; J1170; J1200; J2060; J2765; J7042; U0002

== ENCOUNTER 2023-09-25 00:36 | Emergency (ER) | payer BC ==
[2023-09-25] MEDS: Ketorolac 30 MG/ML SDV IVPUSH ONE (01:20)
[2023-09-25 01:24] LABS: BASOPHILS PERCENT AUTO 0.4 % (0.0-1.0); EOSINOPHILS ABSOLUTE AUTO 0.1 K/mm3 (0.0-0.4); HEMATOCRIT 41.6 % (37.0-47.0); IMMATURE GRAN ABSOLUTE AUTO 0.03 K/mm3 (0.00-0.05); IMMATURE GRAN PERCENT AUTO 0.3 % (0.0-0.4); LYMPHOCYTES ABSOLUTE AUTO 3.1 K/mm3 (1.0-4.8); LYMPHOCYTES PERCENT AUTO 34.3 % (24.0-44.0); MEAN CORPUSCULAR HEMOGLOBIN 30.5 pg (28.0-32.0); MEAN CORPUSCULAR HGB CONC 33.7 g/dl (32.0-36.0); MEAN CORPUSCULAR VOLUME 90.6 fl (83.0-99.0); MEAN PLATELET VOLUME 9.8 fl (9.4-12.3); MONOCYTES ABSOLUTE AUTO 0.7 K/mm3 (0.0-0.8); NEUTROPHILS ABSOLUTE AUTO 5.1 K/mm3 (1.8-7.7); PLATELET COUNT,PLT 350 K/mm3 (150-400); RED BLOOD CELL COUNT 4.59 M/mm3 (4.10-5.30); WHITE BLOOD CELL COUNT,WBC 9.07 K/mm3 (3.9-11.3)
[2023-09-25] MEDS: Orphenadrine 60 MG/2 ML Inj IV ONE (01:24)
[2023-09-25 01:34] LABS: A/G RATIO 1.1 (1-2); ALBUMIN 3.8 g/dl (3.4-5.0); ANION GAP 13.6 (5-15); BILIRUBIN TOTAL 0.5 mg/dL (0.2-1.0); BUN/CREATININE RATIO 16.7 (14-18); CALCIUM 8.9 mg/dL (8.5-10.1); CREATININE 0.9 mg/dL (0.55-1.02); EST CRCL DRUG DOSING (CG) 61.71 mL/min; MAGNESIUM 1.7 mg/dL (1.8-2.4); POTASSIUM,K 3.6 mEq/L (3.5-5.1); PROTEIN TOTAL,TP 7.2 g/dl (6.4-8.2)
[2023-09-25] MEDS: tiZANidine 4 MG Tab PO ONE (03:06)
== END 2023-09-25 03:11 | disposition home or self-care (01) ==
LOC: JD.ED 00:36
DX: M62.830 Muscle spasm of back (principal); R07.89 Other chest pain; F17.210 Nicotine dependence, cigarettes, uncomplicated; Z90.710 Acquired absence of both cervix and uterus; Z88.2 Allergy status to sulfonamides; Z88.6 Allergy status to analgesic agent
CPT/HCPCS: 36415; 71046; 71046-26; 80053; 83735; 84484; 85025; 93005; 96374; 96375; 99285-25; A9270-GY; J1885; J2360

== ENCOUNTER 2023-09-29 11:01 | Emergency (ER) | payer BC ==
[2023-09-29 11:41] LABS: BASOPHILS ABSOLUTE AUTO 0.1 K/mm3 (0.0-0.2); BASOPHILS PERCENT AUTO 0.9 % (0.0-1.0); EOSINOPHILS ABSOLUTE AUTO 0.1 K/mm3 (0.0-0.4); EOSINOPHILS PERCENT AUTO 1.6 % (0.0-6.0); HEMOGLOBIN 14.1 gm/dl (12.0-16.0); IMMATURE GRAN ABSOLUTE AUTO 0.02 K/mm3 (0.00-0.05); IMMATURE GRAN PERCENT AUTO 0.3 % (0.0-0.4); LYMPHOCYTES ABSOLUTE AUTO 2.2 K/mm3 (1.0-4.8); LYMPHOCYTES PERCENT AUTO 38.6 % (24.0-44.0); MEAN CORPUSCULAR HEMOGLOBIN 30.6 pg (28.0-32.0); MEAN CORPUSCULAR HGB CONC 34.4 g/dl (32.0-36.0); MEAN CORPUSCULAR VOLUME 88.9 fl (83.0-99.0); MEAN PLATELET VOLUME 9.3 fl (9.4-12.3); MONOCYTES ABSOLUTE AUTO 0.5 K/mm3 (0.0-0.8); MONOCYTES PERCENT AUTO 8.5 % (0.0-8.0); NEUTROPHILS ABSOLUTE AUTO 2.9 K/mm3 (1.8-7.7); NEUTROPHILS PERCENT AUTO 50.1 % (41.0-71.0); PLATELET COUNT,PLT 333 K/mm3 (150-400); RED BLOOD CELL COUNT 4.61 M/mm3 (4.10-5.30); WHITE BLOOD CELL COUNT,WBC 5.78 K/mm3 (3.9-11.3)
[2023-09-29] MEDS: Ondansetron 4 MG/2 ML SDV IVPUSH ONE (12:02)
[2023-09-29 12:04] LABS: INR 0.96; PROTHROMBIN TIME 10.3 SECONDS (9.7-12.0)
[2023-09-29] MEDS: Morphine 4 MG/ML Syringe IVPUSH ONE (12:04)
[2023-09-29 12:06] LABS: A/G RATIO 1.1 (1-2); ALANINE AMINOTRANSFERASE,ALT 27 U/L (14-59); ALKALINE PHOSPHATASE 55 U/L (46-116); ANION GAP 13.2 (5-15); ASPARTATE AMNIOTRANSFERASE,AST 21 U/L (15-37); BILIRUBIN TOTAL 1.2 mg/dL (0.2-1.0); BLOOD UREA NITROGEN,BUN 16 mg/dL (7-18); BUN/CREATININE RATIO 17.8 (14-18); CALCIUM 9.3 mg/dL (8.5-10.1); CARBON DIOXIDE,CO2 26 mEq/L (21-32); CHLORIDE,CL 104 mEq/L (98-107); CREATININE 0.9 mg/dL (0.55-1.02); ESTIMATED GFR 76 mL/min (>60); GLUCOSE RANDOM 83 mg/dL (70-99); MAGNESIUM 2.2 mg/dL (1.8-2.4); POTASSIUM,K 4.2 mEq/L (3.5-5.1); PROTEIN TOTAL,TP 7.5 g/dl (6.4-8.2); SODIUM,NA 139 mEq/L (136-145); TROPONIN I HIGH SENSITIVITY 5 pg/mL (<=51)
[2023-09-29] MEDS: Pantoprazole 40 MG Vial IVPUSH ONE (12:06)
[2023-09-29 12:07] LABS: D-DIMER QUANTITATIVE < 0.19 mg/L (0.19-0.50)
[2023-09-29] MEDS: Aspirin 81 MG Tab.Chew PO ONE (12:09)
[2023-09-29] MEDS: Sodium Chloride 0.9% 10 ML Syringe FLUSH PRN (12:10)
== END 2023-09-29 14:35 | disposition home or self-care (01) ==
LOC: JD.ED 11:01
DX: K21.00 Gastro-esophageal reflux disease with esophagitis, without bleeding (principal); R07.89 Other chest pain; F17.210 Nicotine dependence, cigarettes, uncomplicated; Z90.710 Acquired absence of both cervix and uterus; Z79.899 Other long term (current) drug therapy; Z88.2 Allergy status to sulfonamides; Z88.6 Allergy status to analgesic agent; Z91.018 Allergy to other foods
CPT/HCPCS: 36415; 71045; 73030; 80053; 83735; 84484; 85025; 85379; 85610; 93005; 96374; 96375; 99285; A9270; C9113; J2270; J2405; J3490